=== PATIENT | male | born 1970 | race African-American/Black ===

== ENCOUNTER 2021-11-10 08:22 | Emergency (ER) | payer SELFPAY ==
[2021-11-10 21:47] LABS: SARS-CoV-2 PCR by NAA DETECTED (NotDetected)
== END 2021-11-10 10:54 | disposition home or self-care (01) ==
LOC: CSHERS 08:22
DX: U07.1 COVID-19 (principal)
CPT/HCPCS: 99283; U0003; U0005

== ENCOUNTER 2021-11-18 14:44 | Emergency (ER) | payer SELFPAY | END 2021-11-18 20:10 | disposition home or self-care (01) | LOC: CSHERS 14:44 | DX: K92.1 Melena (principal) | CPT/HCPCS: 99284 ==

== ENCOUNTER 2022-05-12 15:40 | Emergency (ER) | payer SELFPAY ==
[2022-05-12 16:35] LABS: #Monocytes 0.6 10x3/uL (0.0-1.1); %Basophils 0.6 % (0.0-2.0); %Eosinophils 0.6 % (0.0-6.0); %Lymphocytes 45.8 % (18.0-47.0); %Monocytes 11.8 % (0.0-10.0); Hemoglobin 12.7 g/dL (13.5-17.5); Mean Corpuscular HGB CONC 33.2 g/dL (32.0-36.0); Mean Corpuscular Hemoglobin 31.8 pg (27.0-33.0); Mean Corpuscular Volume 95.7 fl (81.2-95.1); Mean Platelet Volume 9.1 fl (7.4-10.4); Platelet Count 211 10x3/uL (150-450); RBC Distribution Width 11.9 % (11.5-14.5); Red Blood Cell (RBC) Count 3.99 10x6/uL (4.32-5.72); White Blood Cell (WBC) Count 4.8 10x3/uL (3.5-10.5)
[2022-05-12] MEDS ORDERED: Ketorolac Tromethamine 30 MG/ML VIAL ONE (16:39)
[2022-05-12 16:43] LABS: Bilirubin Neg (Negative); Blood, Urine 10 (Negative); Clarity Clear (Clear); Glucose, Urine (Dipstick) Normal (Negative); Ketone, Urine Negative (Negative); Leukocyte 25 (Negative); Nitrite Negative (Negative); Protein, Urine (Dipstick) 30 mg/dl (Neg-Trace); Specific Gravity, Urine 1.025 (1.002-1.036)
[2022-05-12 16:49] LABS: ALT (SGPT) 7 U/L (8-55); AST (SGOT) 13 U/L (5-34); Alkaline Phosphatase 40 U/L (40-110); Anion Gap 12 mmol/L (10-20); BUN (Urea Nitrogen) 14 mg/dL (8.9-20.6); Calc. Creatinine Clearance 0 mL/min (70-130); Calcium 8.9 mg/dL (7.8-10.44); Carbon Dioxide 26 mmol/L (22-29); Chloride 107 mmol/L (98-107); Estimated GFR 87; Globulin 2.8 g/dL (2.4-3.5); Glucose 71 mg/dL (70-105); Potassium 3.7 mmol/L (3.5-5.1); Protein, Total 6.8 g/dL (6.0-8.3); Sodium 141 mmol/L (136-145)
[2022-05-12 16:56] LABS: Squamous Epithelial 0-3 HPF (0-3)
[2022-05-12 16:57] LABS: Bacteria/HPF None Seen HPF (None Seen); Epithelial Cast 0-3 LPF (None Seen); Mucous/LPF 1+ LPF (<2+)
== END 2022-05-12 18:02 | disposition home or self-care (01) ==
LOC: CSHERS 15:40
DX: R10.32 Left lower quadrant pain (principal)
CPT/HCPCS: 74176; 80053; 81003; 81015; 83605; 85025; 96374; J1885

== ENCOUNTER 2022-07-30 16:20 | Emergency (ER) | payer SELFPAY ==
[2022-07-30 17:22] LABS: #Eosinphils 0.1 10x3/uL (0.0-0.5); #Monocytes 0.7 10x3/uL (0.0-1.1); #Neutrophils 2.6 10x3/uL (1.5-8.4); %Basophils 0.5 % (0.0-2.0); %Eosinophils 2.3 % (0.0-6.0); %Lymphocytes 39.1 % (18.0-47.0); %Monocytes 11.6 % (0.0-10.0); %Neutrophils 46.1 % (40.0-75.0); Hemoglobin 13.7 g/dL (13.5-17.5); Mean Corpuscular HGB CONC 33.4 g/dL (32.0-36.0); Mean Corpuscular Hemoglobin 31.9 pg (27.0-33.0); Mean Corpuscular Volume 95.3 fl (81.2-95.1); Mean Platelet Volume 8.5 fl (7.4-10.4); Platelet Count 277 10x3/uL (150-450); White Blood Cell (WBC) Count 5.6 10x3/uL (3.5-10.5)
[2022-07-30 17:45] LABS: ALT (SGPT) 12 U/L (8-55); AST (SGOT) 16 U/L (5-34); Albumin 4.4 g/dL (3.5-5.0); Alkaline Phosphatase 45 U/L (40-110); Anion Gap 12 mmol/L (10-20); BUN (Urea Nitrogen) 13 mg/dL (8.9-20.6); Bilirubin, Total 1.3 mg/dL (0.2-1.2); Calc. Creatinine Clearance 0 mL/min (70-130); Carbon Dioxide 24 mmol/L (22-29); Chloride 106 mmol/L (98-107); Estimated GFR 91; Globulin 3.1 g/dL (2.4-3.5); Glucose 75 mg/dL (70-105); Protein, Total 7.5 g/dL (6.0-8.3); Sodium 138 mmol/L (136-145)
[2022-07-30 18:05] LABS: Bilirubin Neg (Negative); Blood, Urine 10 (Negative); Clarity Clear (Clear); Glucose, Urine (Dipstick) Normal (Negative); Ketone, Urine Negative (Negative); Leukocyte 25 (Negative); Nitrite Positive (Negative); Protein, Urine (Dipstick) 15 mg/dl (Neg-Trace); Specific Gravity, Urine 1.025 (1.005-1.030); Urobilinogen Normal mg/dL (Less than 2)
[2022-07-30 18:12] LABS: Bacteria/HPF 3+ HPF (None Seen); RBC/HPF 0-3 HPF (0-3); Squamous Epithelial 0-3 HPF (0-3)
[2022-07-30] MEDS ORDERED: Ketorolac Tromethamine 30 MG/ML VIAL ONE (20:47)
== END 2022-07-30 22:24 | disposition home or self-care (01) ==
LOC: CSHERS 16:20
DX: N39.0 Urinary tract infection, site not specified (principal)
CPT/HCPCS: 36415; 74176; 80053; 81003; 81015; 85025; 87077; 87086; 87186; 96372; J1885

== ENCOUNTER 2022-12-23 17:32 | Emergency (ER) | payer SELFPAY ==
[~2022-12-23 17:32] MED LIST: Iopamidol 300 61% 100 ML VIAL FS ONE
[2022-12-23 18:12] LABS: #Monocytes 0.7 10x3/uL (0.0-1.1); #Neutrophils 2.5 10x3/uL (1.5-8.4); %Basophils 0.7 % (0.0-2.0); %Eosinophils 0.4 % (0.0-6.0); %Lymphocytes 41.8 % (18.0-47.0); %Monocytes 12.3 % (0.0-10.0); %Neutrophils 44.4 % (40.0-75.0); Hemoglobin 13.3 g/dL (13.5-17.5); Mean Corpuscular HGB CONC 32.6 g/dL (32.0-36.0); Mean Corpuscular Hemoglobin 31.4 pg (27.0-33.0); Mean Corpuscular Volume 96.5 fl (81.2-95.1); Mean Platelet Volume 9.4 fl (7.4-10.4); Platelet Count 248 10x3/uL (150-450); RBC Distribution Width 11.9 % (11.5-14.5); Red Blood Cell (RBC) Count 4.23 10x6/uL (4.32-5.72); White Blood Cell (WBC) Count 5.6 10x3/uL (3.5-10.5)
[2022-12-23 18:22] LABS: ALT (SGPT) 16 U/L (8-55); AST (SGOT) 21 U/L (5-34); Albumin 4.4 g/dL (3.5-5.0); Alkaline Phosphatase 45 U/L (40-110); Anion Gap 14 mmol/L (10-20); BUN (Urea Nitrogen) 17 mg/dL (8.9-20.6); Bilirubin, Total 0.9 mg/dL (0.2-1.2); Calc. Creatinine Clearance 0 mL/min (70-130); Calcium 9.6 mg/dL (7.8-10.44); Carbon Dioxide 24 mmol/L (22-29); Chloride 107 mmol/L (98-107); Estimated GFR 68; Glucose 78 mg/dL (70-105); Lipase 44 U/L (8-78); Protein, Total 7.4 g/dL (6.0-8.3); Sodium 141 mmol/L (136-145)
[2022-12-23 19:44] LABS: Bilirubin Neg (Negative); Blood, Urine Negative (Negative); Clarity Clear (Clear); Glucose, Urine (Dipstick) Normal (Negative); Ketone, Urine Negative (Negative); Leukocyte 25 (Negative); Nitrite Negative (Negative); Protein, Urine (Dipstick) Negative (Neg-Trace); Urobilinogen Normal mg/dL (Less than 2)
[2022-12-23 20:07] LABS: Bacteria/HPF Rare-Few HPF (None Seen); Mucous/LPF Rare LPF (<2+); RBC/HPF 0-3 HPF (0-3); Squamous Epithelial 0-3 HPF (0-3)
== END 2022-12-23 22:05 | disposition home or self-care (01) ==
LOC: CSHERS 17:32
DX: K59.00 Constipation, unspecified (principal)
CPT/HCPCS: 36415; 74177; 80053; 81003; 81015; 83605; 83690; 84484; 85025; 93005; Q9967

== ENCOUNTER 2023-09-02 05:31 | Observation (INO) | payer SELFPAY ==
[2023-09-02] MEDS ORDERED: Ondansetron PF 4 MG/2 ML Vial ONE (05:52)
[2023-09-02] MEDS ORDERED: Morphine 4 MG/ML VIAL ONE ×2 (05:52→07:25)
[2023-09-02] MEDS ORDERED: Ketorolac Tromethamine 30 MG/ML VIAL ONE (05:53)
[2023-09-02 06:07] LABS: #Basophils 0.1 10x3/uL (0.0-0.2); #Monocytes 0.8 10x3/uL (0.0-1.1); %Basophils 0.5 % (0.0-2.0); %Eosinophils 0.2 % (0.0-6.0); %Lymphocytes 15.7 % (18.0-47.0); %Monocytes 7.1 % (0.0-10.0); Hemoglobin 13.7 g/dL (13.5-17.5); Mean Corpuscular HGB CONC 31.9 g/dL (32.0-36.0); Mean Corpuscular Volume 97.3 fl (81.2-95.1); Mean Platelet Volume 9.1 fl (7.4-10.4); Platelet Count 247 10x3/uL (150-450); RBC Distribution Width 12.4 % (11.5-14.5); Red Blood Cell (RBC) Count 4.42 10x6/uL (4.32-5.72); White Blood Cell (WBC) Count 11.8 10x3/uL (3.5-10.5)
[2023-09-02 06:23] LABS: ALT (SGPT) 12 U/L (8-55); AST (SGOT) 23 U/L (5-34); Albumin 4.2 g/dL (3.5-5.0); Alkaline Phosphatase 47 U/L (40-110); Anion Gap 18 mmol/L (10-20); BUN (Urea Nitrogen) 16 mg/dL (8.4-25.7); Bilirubin, Total 1.1 mg/dL (0.2-1.2); Calc. Creatinine Clearance 0 mL/min (70-130); Calcium 8.8 mg/dL (7.8-10.44); Carbon Dioxide 21 mmol/L (22-29); Chloride 108 mmol/L (98-107); Estimated GFR 71; Globulin 3.8 g/dL (2.4-3.5); Glucose 115 mg/dL (70-105); Lipase 18 U/L (8-78); Potassium 4.6 mmol/L (3.5-5.1); Sodium 142 mmol/L (136-145)
[2023-09-02 06:28] LABS: Troponin I Less than 0.010 ng/mL (< 0.028)
[2023-09-02] MEDS ORDERED: Piperacillin/Tazobactam 3.375 GM VIAL ONE (07:22)
[2023-09-02] MEDS ORDERED: Calcium Carbonate 500 MG ChewTAB PO PRN (07:40)
[2023-09-02] MEDS ORDERED: Acetaminophen 325 MG TAB PO PRN (07:40)
[2023-09-02] MEDS ORDERED: Ondansetron PF 4 MG/2 ML Vial IVP PRN (07:40)
[2023-09-02] MEDS ORDERED: HYDROcodone/Acetaminophen 5/325 mg Tablet PO PRN (09:00)
[2023-09-02] MEDS ORDERED: Morphine 2 MG/ML VIAL SLOW IVP PRN (09:22)
[2023-09-02] MEDS ORDERED: Iopamidol 300 61% 100 ML VIAL FS ONE (09:23)
[2023-09-02] MEDS: Pantoprazole 40 MG VIAL IVP SCH (11:16)
[2023-09-02] MEDS: Simethicone Chewable 80 MG TAB PO SCH ×4 (11:16→22:40)
[2023-09-02] MEDS: Lactated Ringer's 1,000 ML IV SCH ×2 (11:17→19:33)
[2023-09-02] MEDS: LevoFLOXacin 750 mg/D5W 750 MG in Premix 1 BAG IVPB SCH (11:17)
[2023-09-02 11:47] LABS: Lactic Acid 1.8 mmol/L (0.5-2.2)
[2023-09-02] MEDS: metroNIDAZOLE 500 MG in Premix 1 BAG IVPB SCH ×2 (14:17→22:40)
[2023-09-03 01:55] VITALS: BMI 23.3
[2023-09-03 03:50] LABS: #Monocytes 0.6 10x3/uL (0.0-1.1); #Neutrophils 2.8 10x3/uL (1.5-8.4); %Basophils 0.4 % (0.0-2.0); %Eosinophils 0.4 % (0.0-6.0); %Lymphocytes 34.4 % (18.0-47.0); %Monocytes 12.1 % (0.0-10.0); %Neutrophils 52.3 % (40.0-75.0); Hematocrit 37.6 % (38.8-50.0); Hemoglobin 12.1 g/dL (13.5-17.5); Mean Corpuscular HGB CONC 32.2 g/dL (32.0-36.0); Mean Corpuscular Volume 96.4 fl (81.2-95.1); Mean Platelet Volume 9.5 fl (7.4-10.4); Platelet Count 222 10x3/uL (150-450); RBC Distribution Width 12.1 % (11.5-14.5); White Blood Cell (WBC) Count 5.3 10x3/uL (3.5-10.5)
[2023-09-03 03:58] LABS: ALT (SGPT) 7 U/L (8-55); AST (SGOT) 13 U/L (5-34); Albumin 3.4 g/dL (3.5-5.0); Alkaline Phosphatase 38 U/L (40-110); Anion Gap 13 mmol/L (10-20); BUN (Urea Nitrogen) 16 mg/dL (8.4-25.7); Bilirubin, Total 1.3 mg/dL (0.2-1.2); Calc. Creatinine Clearance 84 mL/min (70-130); Calcium 8.4 mg/dL (7.8-10.44); Carbon Dioxide 21 mmol/L (22-29); Chloride 108 mmol/L (98-107); Estimated GFR 77; Globulin 2.7 g/dL (2.4-3.5); Glucose 70 mg/dL (70-105); Potassium 3.6 mmol/L (3.5-5.1); Protein, Total 6.1 g/dL (6.0-8.3); Sodium 138 mmol/L (136-145)
[2023-09-03 04:04] LABS: CRP (Inflammatory) Less than 0.50 mg/dL (= or < 0.5); Magnesium 1.6 mg/dL (1.6-2.6)
[2023-09-03] MEDS: Lactated Ringer's 1,000 ML IV SCH (04:38)
[2023-09-03] MEDS: metroNIDAZOLE 500 MG in Premix 1 BAG IVPB SCH (06:16)
[2023-09-03] MEDS: LevoFLOXacin 750 mg/D5W 750 MG in Premix 1 BAG IVPB SCH (09:17)
[2023-09-03] MEDS: Simethicone Chewable 80 MG TAB PO SCH (09:18)
[2023-09-03] MEDS: Pantoprazole 40 MG VIAL IVP SCH (09:18)
[2023-09-03] MEDS ORDERED: Magnesium 2 GM/50 ML(in water) 2 GM in Premix 1 BAG IVPB SCH (10:00)
[2023-09-03] MEDS ORDERED: Potassium Chloride 20 MEQ TAB PO SCH (10:00)
[2023-09-03 14:22] VITALS: BP 127/69; TEMP 99.2
== END 2023-09-03 16:00 | disposition home or self-care (01) ==
LOC: CSHERS 05:31 → SUATTDRO 05:31 → CSHTELE 09:14
PROVIDERS: ADMIT Internal Medicine; ATTEND Internal Medicine
DX: R10.33 Periumbilical pain (principal); R11.2 Nausea with vomiting, unspecified; Z85.038 Personal history of other malignant neoplasm of large intestine; Z88.5 Allergy status to narcotic agent
CPT/HCPCS: 36415; 74018; 74177; 80053; 83605; 83690; 83735; 84145; 84484; 85025; 86140; 87040; 93005; 93010; 96361; 96374; 96375; 96376; C9113; G0378; J1885; J1956; J2270; J2272; J2405; J2543; J3475; J7120; Q9967

== ENCOUNTER 2023-11-28 07:54 | Emergency (ER) | payer SELFPAY ==
[2023-11-28] MEDS ORDERED: Ibuprofen 200 MG TAB ONE (08:36)
== END 2023-11-28 09:33 | disposition home or self-care (01) ==
LOC: CSHERS 07:54
DX: S83.92XA Sprain of unspecified site of left knee, initial encounter (principal); W22.8XXA Striking against or struck by other objects, initial encounter; Y99.0 Civilian activity done for income or pay

== ENCOUNTER 2024-04-07 13:26 | Emergency (ER) | payer SELFPAY ==
[2024-04-07] MEDS ORDERED: Lidocaine/Transparent Dressing 1 EACH KIT ONE (14:41)
[2024-04-07] MEDS ORDERED: Ketorolac Tromethamine 30 MG (1 mL) VIAL ONE (14:41)
[2024-04-07] MEDS ORDERED: Acetaminophen 500 MG TAB ONE (14:42)
[2024-04-07 15:52] LABS: Bilirubin Neg (Negative); Blood, Urine Negative (Negative); Clarity Clear (Clear); Glucose, Urine (Dipstick) Normal (Negative); Ketone, Urine Negative (Negative); Leukocyte Negative (Negative); Nitrite Negative (Negative); Protein, Urine (Dipstick) Negative (Neg-Trace); Specific Gravity, Urine 1.025 (1.005-1.030); Urobilinogen Normal mg/dL (Less than 2)
[2024-04-07 16:50] LABS: RBC/HPF 0-3 HPF (0-3)
[2024-04-07 16:51] LABS: Bacteria/HPF 2+ HPF (None Seen); CAUTI Indications for Culture Pelvic or flank pain; Renal Epithelial 0-3 HPF (None Seen); WBC/HPF 0-3 HPF (0-3)
[2024-04-07 16:52] LABS: Urine Culture Reflex No No
[2024-04-07 17:37] LABS: #Basophils 0.04 10x3/uL (0.0-0.2); #Eosinphils 0.01 10x3/uL (0.0-0.5); #Monocytes 0.43 10x3/uL (0.0-1.1); #Neutrophils 2.23 10x3/uL (1.5-8.4); %Basophils 0.8 % (0.0-2.0); %Eosinophils 0.2 % (0.0-6.0); %Lymphocytes 44.5 % (18.0-47.0); %Monocytes 8.8 % (0.0-10.0); %Neutrophils 45.5 % (40.0-75.0); Hematocrit 40.9 % (38.8-50.0); Hemoglobin 13.5 g/dL (13.5-17.5); Mean Corpuscular Hemoglobin 32.3 pg (27.0-33.0); Mean Corpuscular Volume 97.8 fL (81.2-95.1); Mean Platelet Volume 8.8 fL (7.4-10.4); Platelet Count 216 10x3/uL (150-450); RBC Distribution Width 11.9 % (11.5-14.5); Red Blood Cell (RBC) Count 4.18 10x6/uL (4.32-5.72); White Blood Cell (WBC) Count 4.9 10x3/uL (3.5-10.5)
== END 2024-04-07 18:59 | disposition home or self-care (01) ==
LOC: CSHERS 13:26
DX: M54.50 Low back pain, unspecified (principal)
CPT/HCPCS: 36415; 81001; 85025; 86141; 96372; 99283; J1885

== ENCOUNTER 2024-10-26 08:15 | Emergency (ER) | payer SELFPAY ==
[2024-10-26] MEDS ORDERED: Ketorolac Tromethamine 30 MG (1 mL) VIAL ONE (08:46)
[2024-10-26] MEDS ORDERED: Ondansetron PF 4 MG/2 ML Vial ONE (08:46)
[2024-10-26 08:50] LABS: #Basophils 0.03 10x3/uL (0.0-0.2); #Eosinophils 0.04 10x3/uL (0.0-0.5); #Monocytes 0.58 10x3/uL (0.0-1.1); #Neutrophils 2.85 10x3/uL (1.5-8.4); %Basophils 0.5 % (0.0-2.0); %Eosinophils 0.7 % (0.0-6.0); %Lymphocytes 35.3 % (18.0-47.0); %Monocytes 10.6 % (0.0-10.0); %Neutrophils 52.4 % (40.0-75.0); Hematocrit 43.8 % (38.8-50.0); Hemoglobin 14.3 g/dL (13.5-17.5); Mean Corpuscular HGB CONC 32.6 g/dL (32.0-36.0); Mean Corpuscular Hemoglobin 30.6 pg (27.0-33.0); Mean Corpuscular Volume 93.8 fL (81.2-95.1); Platelet Count 243 10x3/uL (150-450); RBC Distribution Width 11.8 % (11.5-14.5); Red Blood Cell (RBC) Count 4.67 10x6/uL (4.32-5.72); White Blood Cell (WBC) Count 5.5 10x3/uL (3.5-10.5)
[2024-10-26 09:12] LABS: ALT (SGPT) 9 U/L (8-55); AST (SGOT) 14 U/L (5-34); Alkaline Phosphatase 45 U/L (40-110); Anion Gap 13 mmol/L (10-20); BUN (Urea Nitrogen) 17 mg/dL (8.4-25.7); Bilirubin, Total 0.9 mg/dL (0.2-1.2); Calc. Creatinine Clearance 0 mL/min (70-130); Calcium 9.1 mg/dL (7.8-10.44); Carbon Dioxide 22 mmol/L (22-29); Chloride 109 mmol/L (98-107); Estimated GFR 84; Globulin 3.4 g/dL (2.4-3.5); Glucose 93 mg/dL (70-105); Lipase 31 U/L (8-78); Potassium 3.9 mmol/L (3.5-5.1); Protein, Total 7.4 g/dL (6.0-8.3); Sodium 140 mmol/L (136-145)
== END 2024-10-26 13:00 ==
LOC: CSHERS 08:15
DX: K59.00 Constipation, unspecified (principal); Z85.038 Personal history of other malignant neoplasm of large intestine
CPT/HCPCS: 74177; 80053; 83605; 83690; 85025; 96374; 96375; J1885; J2405